=== PATIENT | female | born 1990 | race African-American/Black ===

== ENCOUNTER 2020-03-10 11:15 | Emergency (ER) | payer MEDICAID, OTHER ==
[~2020-03-10] VITALS: Ht 149.9 cm; Wt 55.4 kg
[~2020-03-10 11:15] MED LIST: METR500T PO
[2020-03-10 12:11] LABS: BILIRUBIN,URINE NEGATIVE (NEG); CLARITY,URINE CLOUDY; COLOR,URINE YELLOW; NITRITE,URINE NEGATIVE (NEG); PROTEIN,URINE NEGATIVE (NEG-TRACE); UROBILINOGEN,URINE 0.2 mg/dL (0.2 mg/dL)
[2020-03-10 12:18] LABS: AMORPHOUS SEDIMENT,UR PRESENT /HPF; BACTERIA,URINE MANY /HPF (0-FEW); RBC,URINE 0 /HPF (0-2); WBC,URINE 0 /HPF (0-4)
--- NOTE | 2020-03-10 12:27 | ED.ADGEN ---
Past Medical History Past Medical History: No Pertinent History Past Surgical History: No Surgical History Smoking Status: Current Every Day Smoker Alcohol Use: None Drug Use: None General Adult EDM: Chief Complaint: SEXUALLY TRANSMITTED DISEASE HPI: HPI: Patient is a 29 year old AA female who presents to the emergency room with concerns of a possible urinary tract infection or sexually transmitted infection. Patient states that her significant other went to the doctor for lower abdominal pain and when he came back he told her that she should go get checked for a UTI. Patient states she is currently she thinks she is about 8 to 9 weeks along. She is not sure when her last menstrual cycle was. She denies any abnormal vaginal discharge, pelvic pain, abdominal pain, back pain, dysuria, hematuria, fever, cough, body aches, or fatigue. Patient states that she has noticed some increased urinary frequency. She currently denies any pain. Patient states she is 3, para 1, with a previous miscarriage. Review of Systems: Review of Systems: Complete ROS is negative unless otherwise noted in HPI. Current Medications: Current Medications Medications (Trade) Dose Ordered Sig/Kenyatta Start Time Stop Time Status Last Admin Dose Admin Azithromycin (Zithromax) 1,000 mg 1X ONCE 03/10/20 12:30 03/10/20 12:31 DC 03/10/20 12:40 1,000 MG Ceftriaxone Sodium (Rocephin Im) 250 mg 1X ONCE 03/10/20 12:30 03/10/20 12:31 DC 03/10/20 12:40 250 MG Allergies: Allergies: Allergies Coded Allergies Type Severity Reaction Last Updated Verified No Known Drug Allergies 03/04/15 No Physical Exam: PE: See Above Constitutional: Well developed, well nourished, no acute distress, non-toxic appearance. HENT: Normocephalic, atraumatic, bilateral external ears normal, nose normal. Eyes: PERRLA, EOMI, conjunctiva normal, no discharge. Neck: Normal range of motion, no stridor. Cardiovascular: Heart rate regular rhythm Lungs & Thorax: Respirations even and unlabored, no retractions, no respiratory distress Pelvic Exam: Color Mixer present Celestine BOYLE Abdomen: Nontender, soft External Genitalia: Normal Skin Speculum: Normal vaginal mucosa, purulent cervical discharge, nonfriable cervix Bimanual: No adnexal masses or tenderness, CMT present Skin: Warm, dry, no erythema, no rash. Back: No tenderness Extremities: No cyanosis, ROM intact, no edema. Neurologic: Alert and oriented X 3, no focal deficits noted. Psychologic: Affect normal, judgement normal, mood normal. Current Patient Data: Labs: Laboratory Tests Test 03/10/20 11:30 03/10/20 14:05 Urine Collection Type Unknown Urine Color Yellow Urine Clarity Cloudy Urine pH 8.0 (<5.0-8.0) Urine Specific [place] 1.015 (1.000-1.030) Urine Protein Negative mg/dL (NEG-TRACE) Urine Glucose (UA) Negative mg/dL (NEG) Urine Ketones (Stick) Negative mg/dL (NEG) Urine Blood Negative (NEG) Urine Nitrite Negative (NEG) Urine Bilirubin Negative (NEG) Urine Urobilinogen Dipstick 0.2 mg/dL (0.2 mg/dL) Urine Leukocyte Esterase Negative (NEG) Urine RBC 0 /HPF (0-2) Urine WBC 0 /HPF (0-4) Urine Squamous Epithelial Cells Few /LPF Urine Amorphous Sediment Present /HPF Urine Bacteria Many /HPF (0-FEW) Urine Test Positive (NEG) Maternal Serum HCG Beta Subunit < 1 mIU/mL (0-5) Microbiology 03/10/20 Wet Prep - Final, Complete Vital Signs: Vital Signs Date Time Temp Pulse Resp B/P (MAP) Pulse Ox O2 Delivery O2 Flow Rate FiO2 03/10/20 15:26 88 118/88 (98) 98 Room Air 03/10/20 11:55 98.1 20 98.1 EKG: EKG: [] Heart Score: Risk Factors: Risk Factors: DM, Current or recent (<one month) smoker, HTN, HLP, family history of CAD, obesity. Risk Scores: Score 0 - 3: 2.5% MACE over next 6 weeks - Discharge Home Score 4 - 6: 20.3% MACE over next 6 weeks - Admit for Clinical Observation Score 7 - 10: 72.7% MACE over next 6 weeks - Early Invasive Strategies Radiology/Procedures: Radiology/Procedures: PROCEDURE: OB <14 WKS W/TV OB <14 WKS W/TV History: Reason: CMT, , probable STI / Spl. Instructions: / History: Comparison: None. Technique: Grayscale and color Doppler imaging of the pelvis was performed using transabdominal technique. Findings: The uterus measures 8.8 x 5.1 x 3.9 cm. No evidence of intrauterine gestational sac. Right ovary measures 2.8 x 2.2 x 2.2 cm. Left ovary measures 2.7 x 2.2 x 2.1 cm. Left ovarian hypoechoic lesion measures 2.8 cm. Normal Doppler flow to the ovaries bilaterally. No adnexal masses are seen. IMPRESSION: 1. No evidence of intrauterine gestational sac, may relate to early . Recommend short-term ultrasound follow-up and serial beta-hCG testing. 2. Left ovarian hypoechoic lesions, likely hemorrhagic follicle. Recommend attention on follow-up. [] Course & Med Decision Making: Course & Med Decision Making Pertinent Labs and Imaging studies reviewed. (See chart for details) [] Dragon Disclaimer: Dragon Disclaimer: This electronic medical record was generated, in whole or in part, using a voice recognition dictation system. Departure Departure Impression: Primary Impression: Bacterial vaginosis Additional Impressions: Contact with and (suspected) exposure to infections with a predominantly sexual mode of transmission Not currently Disposition: 01 DC HOME SELF CARE/HOMELESS Condition: STABLE Referrals: NO PCP (PCP) Patient Instructions: Bacterial Vaginosis, [id number], Sexually Transmitted Disease, [id number] Additional Instructions: Fill the prescription and use as directed. Recommend that you go to your local health department for comprehensive sexually transmitted disease testing. You have been treated for a suspected gonorrhea and chlamydia. Avoid having intercourse until the results of gonorrhea and chlamydia testing are available, these results will not be available for 48 hours. If one or both of these tests is positive, you need to refrain from intercourse for approximately 1 week following the treatment of any current partners. Follow-up with your primary care doctor if symptoms persist, return to ER symptoms worsen. Scripts Metronidazole (FLAGYL) 500 Mg Tablet 1 TAB PO BID, #14 TAB 0 Refills Prov: MABEL THOMSON APRN 03/10/20 Problem Qualifiers MABEL THOMSON APRN Mar 10, 2020 12:26
[2020-03-10] MEDS ORDERED: AZITHROMYCIN 250 MG TABLET. PO ONE (12:30)
[2020-03-10] MEDS ORDERED: cefTRIAXone IM 250 MG VIAL IM ONE (12:30)
[2020-03-10 12:38] LABS: U PREG PATIENT POSITIVE (NEG)
--- NOTE | 2020-03-10 13:23 | RAD ---
OB <14 WKS W/TV History: Reason: CMT, , probable STI / Spl. Instructions: / History: Comparison: None. Technique: Grayscale and color Doppler imaging of the pelvis was performed using transabdominal technique. Findings: The uterus measures 8.8 x 5.1 x 3.9 cm. No evidence of intrauterine gestational sac. Right ovary measures 2.8 x 2.2 x 2.2 cm. Left ovary measures 2.7 x 2.2 x 2.1 cm. Left ovarian hypoechoic lesion measures 2.8 cm. Normal Doppler flow to the ovaries bilaterally. No adnexal masses are seen. IMPRESSION: 1. No evidence of intrauterine gestational sac, may relate to early . Recommend short-term ultrasound follow-up and serial beta-hCG testing. 2. Left ovarian hypoechoic lesions, likely hemorrhagic follicle. Recommend attention on follow-up. Electronically signed by: Jose Francisco Field DO (03/10/2020 1:20 PM) [id number]
[2020-03-10 15:26] VITALS: BP 118/88
[2020-03-10] MEDS ORDERED: METR500T PO (16:44)
[2020-03-12 17:21] LABS: GC PROBE Positive (Negative)
== END 2020-03-10 16:30 | disposition home or self-care (01) ==
LOC: ER 11:15
DX: O23.591 Infection of other part of genital tract in pregnancy, first trimester (principal); R10.30 Lower abdominal pain, unspecified; F17.200 Nicotine dependence, unspecified, uncomplicated; Z20.2 Contact with and (suspected) exposure to infections with a predominantly sexual mode of transmission; Z3A.00 Weeks of gestation of pregnancy not specified
CPT/HCPCS: 36415; 76801; 76817; 81001; 81025; 84702; 87086; 87491; 87591; 96372; 99285; J0696; Q0111